=== PATIENT | female | born 1990 | race Two or more races ===

== ENCOUNTER 2023-05-08 16:24 | Emergency (ER) | payer MEDICAID ==
[2023-05-08] MEDS ORDERED: Acetaminophen 500 MG Tab PO ONE (16:51)
== END 2023-05-08 18:58 | disposition home or self-care (01) ==
LOC: MW.ED 16:24
DX: G44.309 Post-traumatic headache, unspecified, not intractable (principal); F07.81 Postconcussional syndrome
CPT/HCPCS: 70450; 99284; A9270; 99283

== ENCOUNTER 2023-12-01 23:07 | Emergency (ER) | payer MEDICAID | END 2023-12-01 23:29 | LOC: MW.ED 23:07 | DX: S20.419A Abrasion of unspecified back wall of thorax, initial encounter (principal); F07.81 Postconcussional syndrome; Z79.899 Other long term (current) drug therapy; Z75.8 Other problems related to medical facilities and other health care; Y04.8XXA Assault by other bodily force, initial encounter | CPT/HCPCS: 99283; 99284 ==